=== PATIENT | male | born 1960 | race Caucasian/White ===

== ENCOUNTER 2021-02-24 23:42 | Inpatient (IN) | payer OTHER, SELFPAY ==
--- NOTE | ~2021-02-24 | XR_ITS ---
XR chest 1V portable DATE: 02/25/2021 00:05 INDICATION: Chest pain TECHNIQUE: Portable AP chest on 02/25/2021 at 0006 hours COMPARISON: 09/09/2017 two-view chest FINDINGS: Status post sternotomy/coronary bypass graft surgery. Heart size appears normal. No pulmonary infiltrate or consolidation, pleural effusion or pulmonary vascular congestion or pneumo thorax is evident. Degenerative changes of the thoracic spine. IMPRESSION: Status post sternotomy/CABG No active cardiopulmonary disease Reviewed, dictated and finalized at location A.
[2021-02-24 23:48] VITALS: BP 165/119; PULSE 135; RESP 15; O2SAT 100
--- NOTE | 2021-02-24 23:48 | ECG_ITS ---
Measurements Intervals [place] Rate: 146 P: MN: 0 QRS: -49 QRSD: 134 T: 130 QT: 296 QTc: 462 Interpretive Statements ATRIAL FIBRILLATION WITH RAPID VENTRICULAR RESPONSE VENTRICULAR COUPLET AND FREQUENT VENTRICULAR PREMATURE COMPLEXES LEFT BUNDLE BRANCH BLOCK INFERIOR INFARCT OR DUE TO LEFT BUNDLE BRANCH BLOCK ABNORMAL ECG Electronically Signed On 02-25-2021 8:22:06 CDT by Cooper Patterson D.O.
[2021-02-25] VITALS (69 sets, daily range): BP systolic 116–199; BP diastolic 75–147; PULSE 50–169; RESP 12–32; TEMP 36.3–37; O2SAT 96–100; BMI 27.5
--- NOTE | 2021-02-25 | ECHO_ITS ---
Patient Info Name: Bk Jennings Age: 60 years : 1960 Gender: Male Ht: 71 in Wt: 197 lbs BSA: 2.13 m2 HR: 68 bpm BP: 136 / 102 mmHg Technical Quality: Good Exam Date: 02/25/2021 3:31 PM Exam Location: [facility] Pulmonary Exam Room: [facility] Patient Status: Inpatient Admit Date: 02/25/2021 Staff Ordering Physician: Rima Sanchez PA-C Dental Technician Metal: Criss Ellis RDCS Attending Provider: Rima Sanchez PA-C Referring Physician: Latoya BELL Exam Type: CA echo doppler color flow Study Info Indications - ICM AFIB RVR CAD S/P CABG Complete two-dimensional, color flow and Doppler transthoracic echocardiogram is performed. Summary 1. Complete two-dimensional, color flow and Doppler transthoracic echocardiogram is performed. 2. Left ventricular chamber dimension is mildly enlarged. 3. Left ventricular systolic function is moderately reduced, estimated at 35-40%. 4. Left atrial chamber dimension is mildly enlarged. 5. The mitral valve has thickened leaflets. 6. There is mild mitral valve regurgitation. 7. There is no aortic valve stenosis. 8. There is no tricuspid valve regurgitation. 9. Unable to estimate pulmonary arterial systolic pressure due to poor TR jet. 10. There is no pericardial effusion. Left Ventricle Left ventricular chamber dimension is mildly enlarged. Left ventricular systolic function is moderately reduced, estimated at 35-40%. There is mildly increased left ventricular wall thickness. The left ventricular diastolic function is grade II diastolic dysfunction. Right Ventricle Right ventricular chamber dimension is normal. Right ventricular systolic function is normal. Left Atria Left atrial chamber dimension is mildly enlarged. Right Atria Right atrial chamber dimension is normal. Aortic Valve The aortic valve is trileaflet. There is no aortic valve sclerosis. There is no aortic valve stenosis. There is no aortic valve regurgitation. Pulmonic Valve The pulmonic valve is normal. There is no pulmonic valve stenosis. There is no pulmonic regurgitation. Mitral Valve The mitral valve has thickened leaflets. There is mild mitral valve regurgitation. Tricuspid Valve The tricuspid valve leaflets are normal. There is no significant tricuspid valve stenosis. There is no tricuspid valve regurgitation. Unable to estimate pulmonary arterial systolic pressure due to poor TR jet. Pericardium/Pleural The pericardium appears normal. There is no pericardial effusion. Inferior Vena Cava Normal inferior vena cava with >50% collapse upon inspiration. Aorta The aortic root size at the sinus of Valsalva is normal. The prox ascending aorta size is normal. Left Ventricular Outflow Tract Name Value Normal LVOT 2D LVOT Diameter 2.1 cm LVOT Doppler LVOT Peak Gradient 5 mmHg LVOT Mean Gradient 3 mmHg LVOT VTI 21 cm LVOT VTI/AV VTI Ratio 0.7 LVOT Stroke Volume 71 ml LVOT CO
--- NOTE | 2021-02-25 00:15 | ED.GENADULT ---
HPI - General Adult General Chief complaint: Chest Pain Stated complaint: chest pain, jaw pain, etoh, dehydration Time Seen by Provider: 02/24/21 23:45 History of Present Illness HPI narrative: Patient is a 60-year-old gentleman who presents the emergency department with chief complaint of jaw tightness and palpitations. The patient reports he has history of cardiac disease has had a bypass and is also had some stents placed in his heart. The patient reports he was at a local drinking establishment today and was drinking whiskey but states that he is not really drunk and started having symptoms while he was sitting at the bar. EMS was called patient was found to be tachycardic and patient was given a bolus of fluids in route to the emergency department. Patient reports is not really having active chest pain with this only tightness in his jaw. Related Data Home Medications Medication Instructions Recorded Confirmed aspirin 325 mg tablet 325 mg PO DAILY 06/12/20 carvedilol 6.25 mg tablet 6.25 mg PO Q12H 06/12/20 Allergies Allergy/AdvReac Type Severity Reaction Status Date / Time amoxicillin Allergy Intermediate UNKNOWN Verified 02/25/21 00:33 ciprofloxacin [Cipro] Allergy Intermediate UNKNOWN Verified 02/25/21 00:33 codeine Allergy Intermediate UNKOWN Verified 02/25/21 00:33 Penicillins Allergy Intermediate UNKNOWN Verified 02/25/21 00:33 Amedpnq-Lru-Hnc Reductase Allergy Mild ACHES Verified 02/25/21 00:33 Inhibitor Steroids Allergy Intermediate UNKNOWN Uncoded 02/25/21 00:33 Review of Systems Review of Systems: Narrative: A 10 system review of systems was completed on the patient and is negative except for what is stated in the HPI. Nursing and ancillary documentation was reviewed. [facility] Past Medical History Medical History CAD (coronary artery disease) Chronic back pain Disabled KATHY (generalized anxiety disorder) Herpesviral infection of penis HTN (hypertension) Hyperlipidemia Nicotine dependence, cigarettes, uncomplicated NSTEMI (non-ST elevated myocardial infarction) 10/04/2016 Teeth problem Due to insurance he can't get surgery Surgical History Surgical History H/O right heart catheterization 2017 Hx of CABG 2016 Family History Family History Father Heart disease Social History Social History Smoking status: Current every day smoker Exam Narrative: Exam Narrative: GENERAL: Well-appearing, well-nourished, and in no acute distress. HEAD: Normocephalic, atraumatic. EYES: PERRLA and EOMI. ENT: Nares clear, no rhinorrhea or epistaxis. Mucous membranes moist. NECK: Supple. CHEST: Clear to auscultation. No respiratory distress. HEART: Tachycardic rate and irregular rhythm. No murmur heard. Normal peripheral pulses. ABDOMEN: Soft, nontender, nondistended, normal active bowel sounds. EXTREMITIES: Normal range of motion. No edema. SKIN: Warm, dry, no rash. NEURO: No focal deficits. Alert and oriented x3. PSYCH: Normal mood and affect. Course Vital Signs Vital signs: Vital Signs Pulse Rate 135 H 02/24/21 23:48 Respiratory Rate 15 02/24/21 23:48 Blood Pressure 165/119 H 02/24/21 23:48 Pulse Oximetry 100 02/24/21 23:48 Pulse Rate 143 H 02/25/21 04:20 Respiratory Rate 18 02/25/21 04:16 Blood Pressure 127/94 H 02/25/21 04:20 Pulse Oximetry 97 02/25/21 03:35 Medical Decision Making Vital Signs Vital Signs: Vital Signs Pulse Rate 135 H 02/24/21 23:48 Respiratory Rate 15 02/24/21 23:48 Blood Pressure 165/119 H 02/24/21 23:48 Pulse Oximetry 100 02/24/21 23:48 Pulse Rate 143 H 02/25/21 04:20 Respiratory Rate 18 02/25/21 04:16 Blood Pressure 127/94 H 02/25/21 04:20 Pulse Oximetry 97
[2021-02-25] MEDS: dilTIAZem HCl INJ 25 MG/5 ML VIAL 20 MG IV PUSH ×2 (00:22→03:11)
[2021-02-25] MEDS: SODIUM CHLORIDE 0.9% IV 1,000 ML 999 ML IV CONT (00:30)
[2021-02-25 01:04] LABS: Alanine Aminotransferase 26 U/L (4-50); Alkaline Phosphatase 77 U/L (38-126); Anion Gap 11 mmol/L (8-16); Aspartate Amino Transferase 25 U/L (17-59); Bilirubin,Total 0.7 mg/dL (0.2-1.3); Blood Urea Nitrogen 8 mg/dL (9-20); Calcium 8.4 mg/dL (8.4-10.2); Carbon Dioxide 20 mmol/L (22-30); Chloride 107 mmol/L (98-107); Estimated CRCL calculation 106 ml/min; Estimated Glomerular Filt Rate > 60; Glucose 93 mg/dL (75-110); Lipase 136 U/L (23-300); Potassium 3.3 mmol/L (3.4-5.0); Sodium 138 mmol/L (137-145)
[2021-02-25 01:10] LABS: Basophils Absolute Auto 0.1 K/mm3 (0.0-0.1); Basophils Percent Auto 0.7 % (0.2-1.2); Eosinophils Absolute Auto 0.1 K/mm3 (0-0.3); Eosinophils Percent Auto 1.8 % (0-4.4); Hematocrit 41.2 % (42.0-52.0); Hemoglobin 14.3 g/dL (14.0-18.0); Immature Granulocyte Absolute 0.02 K/mm3 (0.00-0.031); Immature Granulocyte Percent A 0.3 % (0-0.5); Lymphocytes Absolute Auto 1.82 K/mm3 (0.9-3.2); Mean Corpuscular HGB Conc 34.7 g/dl (32-36); Mean Corpuscular Hemoglobin 31.4 pg (26-34); Mean Corpuscular Volume 90.4 fl (80-100); Mean Platelet Volume 11.9 fl (7.4-10.4); Monocytes Absolute Auto 0.7 K/mm3 (0.1-0.6); Monocytes Percent Auto 9.7 % (2.6-8.5); Neutrophils Absolute Auto 4.1 K/mm3 (1.3-6.7); Neutrophils Percent Auto 60.5 % (45.5-73.1); Platelet Count Result 171 k/mm3 (150-375); Red Blood Count 4.56 M/mm3 (4.6-6.20); Red Cell Distribution Width 12.8 % (11.5-14.5); White Blood Count 6.7 K/mm3 (4.5-10.0)
[2021-02-25 01:18] LABS: NT Pro B Type Natriuretic Pept 252 pg/mL (5-100); Troponin I 0.036 ng/mL (0.000-0.034)
[2021-02-25 01:24] LABS: INR 1.2; Prothrombin Time 14.6 Seconds (11.1-14.7)
[2021-02-25 01:25] LABS: Partial Thromboplastin Time 30.1 SECONDS (22.3-36.8)
[2021-02-25] MEDS: SODIUM CHLORIDE 0.9% IV 1,000 ML 100 ML (01:47)
[2021-02-25 04:41] LABS: Magnesium 2.2 mg/dL (1.6-2.3)
[2021-02-25 04:48] LABS: Troponin I 0.393 ng/mL (0.000-0.034)
[2021-02-25] MEDS: POTASSIUM CHLORIDE 20 MEQ PACKET (FOR LIQUID) 40 MEQ PO (05:07)
--- NOTE | 2021-02-25 06:18 | ADMGEN ---
This patient, Bk Jennings, was admitted to IMU Room 206-01. Patient/family oriented to hospital policies and general routines including ID bracelet, bed and alarms, visiting hours, pain management, procedures, bathroom and other care routines, personal items, smoking policy, room service/diet, and visiting hours. Information on how to activate the Rapid Response Team has been discussed. Patient/Family are encouraged to report perceived risks to care and to ask questions if they do not understand what they are told or what they should do. report from Noelle
--- NOTE | 2021-02-25 06:33 | PC.NURSE ---
Pt has $546 in triana in his wallet. Sandy Hernández counted it with me and the pt. He is insistent it stay w him and not be locked up
[2021-02-25 06:40] LABS: Magnesium 2.1 mg/dL (1.6-2.3)
[2021-02-25 06:51] LABS: Troponin I 0.754 ng/mL (0.000-0.034)
[2021-02-25] MEDS: SODIUM CHLORIDE 0.9% IV 1,000 ML 125 ML IV CONT (08:44)
--- NOTE | 2021-02-25 09:05 | PM.IMHP ---
H&P: HPI History of Present Illness Date/Time: 02/25/21 09:05 Chief Complaint: jaw pain with palpitations Narrative: Pt is a 60-year-old male here for palpitations and jaw pain. Patient states that he went drinking Tuesday night and while he was drinking he started having jaw pain and palpitations. He said he drank a bottle of Captain, 18 beers, and 2 margaritas and then started feeling bad. He had no chest pain or shortness of breath with this but did not feel great. He has had these palpitations in the past and is usually with exertion. Once he sits down, the jaw pain in the palpitations stop. He also notices the palpitations when he drinks alcohol but after a couple days the palpitations go way. He can usually climb 2-3 flights of stairs without any issue. He has had a 5 vessel bypass in 2017 and has not seen the junior systems administrator since he left the hospital from that stay. He has not been taking his medications carvedilol or aspirin in the last few days as he often forgets. He does not like how the other medications that he has been prescribed in the past make him feel and he is very weary about medications. He mentions that he has had stomach issues and about 5 days ago he had black stools. He has a history of peptic ulcer disease when he was younger when he would drink a lot but has not had any recent GI bleed or GI evaluation. He says that he has to drink magnesium citrate at least every other day so he can have bowel movements. He has been doing this for 5 years. He has no history of alcohol withdrawal issues including hallucinations, tremors or seizures. He says when he quits nothing happens. No problems with falls. He said his first KS was at 44. Review of Systems Review of Systems: All systems reviewed & are unremarkable except as noted in HPI and below [facility] Past Medical History Medical History (Updated 02/25/21 @ 11:53 by Rima Sanchez PA-C) CAD (coronary artery disease) Chronic back pain Disabled KATHY (generalized anxiety disorder) Herpesviral infection of penis HTN (hypertension) Hyperlipidemia Nicotine dependence, cigarettes, uncomplicated NSTEMI (non-ST elevated myocardial infarction) 10/04/2016 Peptic ulcer disease Teeth problem Due to insurance he can't get surgery Surgical History Surgical History H/O right heart catheterization 2017 Hx of CABG 2017 Family History Family History (Updated 02/25/21 @ 11:53 by Rima Sanchez PA-C) Father Heart disease first heart attack at 50 Mother Heart disease Social History Social History Smoking packs per day: 1.5 Smoking cigarettes per day: 30.0 Years smoked: 22 Smoking pack-years: 33.00 Smoking status: Current every day smoker Tobacco type: cigarettes Alcohol intake: current Substance use: never Other substance usage details: 5th of capt and 3 6packs every few days Gender identity (if verbalized by the patient): Male Spiritual care concerns: No Meds Home Medications and Allergies Home Medications Medication Instructions Recorded Confirmed Type aspirin 325 mg tablet 325 mg PO DAILY 06/12/20 02/25/21 History carvedilol 6.25 mg tablet 6.25 mg PO Q12H 06/12/20 02/25/21 History Allergies Allergy/AdvReac Type Severity Reaction Status Date / Time amoxicillin Allergy Intermediate UNKNOWN Verified 02/25/21 00:33 ciprofloxacin [Cipro] Allergy Intermediate UNKNOWN Verified 02/25/21 00:33 codeine Allergy Intermediate UNKOWN Verified 02/25/21 00:33 Penicillins Allergy Intermediate UNKNOWN Verified 02/25/21 00:33 Hwtrwis-Tgd-Vfu Reductase Allergy Mild ACHES Verified 02/25/21 00:33 Inhibitor Steroids Allergy Intermediate UNKNOWN Uncoded 02/25/21 00:33 Vital Signs Vital Signs - 24 hr 02/24/21 23:48 02/25/21 00:22 02/25/21 00:29 Temperature Pulse Rate 135 H 169 H 118 H Respir
--- NOTE | 2021-02-25 09:27 | PM.CNCAR ---
Assessment and Plan Assessment and plan (1) Atrial fibrillation with rapid ventricular response: Code(s): I48.91 - Unspecified atrial fibrillation Status: Acute Assessment and Plan: 60 y/o male with h/o [place], CAD s/p CABG in 2017,ischemic cardiomyopathy, HTN, HLD, active tobacco and alcohol use who presented with A Fib/RVR and NSTMI Patient has A fib with RVR in the setting of heavy alcohol use and hypokalemia Will resume home dose of Coreg Will start Digoxin IV load with 0.5 mcgX1 now followed by 0.25 X2 with 6 hours interval Check 2D echo Wean off Cardizem ying if EF is depressed Replace K He has severe non compliance issues and ongoing alcohol use with risk of fall. Would not be good candidate for senior care AC unless he change his drinking habits I A (2) NSTEMI (non-ST elevated myocardial infarction): Code(s): I21.4 - Non-ST elevation (NSTEMI) myocardial infarction Status: Acute Assessment and Plan: His troponin is mildly elevated. No chest pain. EKG with LBBB, unclear if new or if he had it before. Probably due to type II OH from increased demand. Will follow troponin to peak and consider IV heparin if troponin continues to risk Check 2D echo Continue ASA Statin listed as allergy. Will clarify with patient if true allergy Vs side effects (3) CAD (coronary artery disease): Code(s): I25.10 - Atherosclerotic heart disease of [place] coronary artery without angina pectoris Status: Acute Assessment and Plan: s/p CABGX5 at [place]. Unknown anatomy (4) Alcohol abuse: Code(s): F10.10 - Alcohol abuse, uncomplicated Status: Acute (5) Nicotine dependence, cigarettes, uncomplicated: Code(s): F17.210 - Nicotine dependence, cigarettes, uncomplicated Status: Acute (6) HTN (hypertension): Code(s): I10 - Essential (primary) hypertension Status: Acute History of Present Illness History of Present Illness Consult date/time: 02/25/21 09:27 60 y/o male with h/o OH, CAD s/p CABG in 2017,ischemci cardiomyopathy (EF 25% in 2017, recovered post CABG to 45%), HTN, HLD, active tobacco and alcohol use who presented with palpitations He started drinking around 1:00 pm yesterday, had 1.5 bottle of whisky and 12 beers. He reports palpitations every time he drinks, usually resolve spontaneously however yesterday they lasted longer hence he decided to come to ER. He was noted to be in A fib with RVR with HR 140s. Started on Cardizem drip. Heart rate remains elevated. Troponin was noted to be elevated 0.03--0.3--0.7. He denies chest pain or dyspnea. He admits to jaw pain only when the heart rate goes too fast. Denied dyspnea. EKG shows Atrial fibrillation, LBBB He smokes 1.5 pack a day. Father and grandfather had MIs Reason For Visit: Atrial Fibrillation w/Rapid Ventricular Response Review of Systems Review of Systems: All systems reviewed & are unremarkable except as noted in HPI and below Constitutional: Constitutional: Denies fatigue and Denies headache(s) Eyes: Eyes: Denies blurry vision ENT: Reports Normal hearing present and Denies headache(s) Cardiovascular: Cardiovascular: Denies chest pain, Denies diaphoresis, Denies pedal edema, Denies leg edema, Denies lightheadedness, Denies palpitations and Denies dyspnea Respiratory: Respiratory: Denies cough and Denies dyspnea Gastrointestinal: Gastrointestinal: Denies abdominal pain Musculoskeletal: Musculoskeletal: Denies back pain Neurologic: Reports Normal hearing present and Denies headache(s) Psychiatric: Psychiatric: Denies anxiety Endocrine: Endocrine: Denies fatigue and Denies palpitations [facility] Past Medical History Medical History CAD (coronary artery disease) Chronic back pain Disabled KATHY (generalized anxiety disorder) Herpesviral infection of penis HTN (hypertension) Hyperlipidemia Nicotine depe
[2021-02-25] MEDS: FOLIC ACID 1 MG TABLET PO (10:54)
[2021-02-25] MEDS: ASPIRIN 81 MG CHEWABLE TABLET PO (10:54)
[2021-02-25] MEDS: PANTOPRAZOLE SODIUM IV 40 MG VIAL IV PUSH ×2 (10:54→21:17)
[2021-02-25] MEDS: THIAMINE HCL 100 MG TABLET PO (10:54)
--- NOTE | 2021-02-25 11:09 | ECG_ITS ---
Measurements Intervals [place] Rate: 67 P: 35 MN: 209 QRS: -54 QRSD: 145 T: 120 QT: 397 QTc: 422 Interpretive Statements SINUS RHYTHM WITH FIRST DEGREE AV BLOCK POSSIBLE LEFT ATRIAL ENLARGEMENT LEFT AXIS DEVIATION LEFT BUNDLE BRANCH BLOCK INFERIOR INFARCT OR DUE TO LBBB BASELINE ARTIFACT- I, II, III ABNORMAL ECG Electronically Signed On 02-25-2021 11:57:39 CDT by Cooper Patterson D.O.
[2021-02-25] MEDS: carvediloL 6.25 MG TABLET PO ×2 (11:28→21:17)
[2021-02-25 12:18] LABS: Basophils Percent Auto 0.3 % (0.2-1.2); Eosinophils Absolute Auto 0.1 K/mm3 (0-0.3); Eosinophils Percent Auto 0.8 % (0-4.4); Hematocrit 46.4 % (42.0-52.0); Hemoglobin 15.7 g/dL (14.0-18.0); Immature Granulocyte Absolute 0.06 K/mm3 (0.00-0.031); Immature Granulocyte Percent A 0.5 % (0-0.5); Lymphocytes Absolute Auto 1.44 K/mm3 (0.9-3.2); Mean Corpuscular HGB Conc 33.8 g/dl (32-36); Mean Corpuscular Hemoglobin 31.3 pg (26-34); Mean Corpuscular Volume 92.6 fl (80-100); Mean Platelet Volume 11.2 fl (7.4-10.4); Monocytes Absolute Auto 1.1 K/mm3 (0.1-0.6); Monocytes Percent Auto 9.4 % (2.6-8.5); Neutrophils Absolute Auto 9.2 K/mm3 (1.3-6.7); Platelet Count Result 170 k/mm3 (150-375); Red Blood Count 5.01 M/mm3 (4.6-6.20); Red Cell Distribution Width 13.3 % (11.5-14.5)
--- NOTE | 2021-02-25 12:20 | PC.NURSE ---
To be noted - all charting on this patient on 02/25/21 from [id number] was noted to be as Enid Stone. This was an error. All charting during this time was completed by Nithya Meyers RN.
[2021-02-25] MEDS: HEPARIN SOD/D5W 100 UNITS/ML 25,000 UNITS/250 ML BAG 10 UNITS IV CONT (12:22)
[2021-02-25 12:29] LABS: INR 1.1; Prothrombin Time 13.9 Seconds (11.1-14.7)
[2021-02-25 12:30] LABS: Partial Thromboplastin Time 30.5 SECONDS (22.3-36.8)
[2021-02-25 19:03] LABS: Hematocrit 45.7 % (42.0-52.0); Hemoglobin 15.3 g/dL (14.0-18.0)
[2021-02-25 19:16] LABS: Partial Thromboplastin Time 68.6 SECONDS (22.3-36.8)
[2021-02-25] MEDS: HEPARIN SODIUM 5,000 UNITS/ML VIAL 3500 UNITS IV PUSH (19:47)
[2021-02-26] VITALS (9 sets, daily range): BP systolic 162–175; BP diastolic 98–106; PULSE 58–83; RESP 18–22; TEMP 36.4–36.6; O2SAT 98–100
[2021-02-26 01:03] LABS: Hematocrit 43.1 % (42.0-52.0); Hemoglobin 14.8 g/dL (14.0-18.0)
[2021-02-26 01:40] LABS: Partial Thromboplastin Time > 200.0 SECONDS (22.3-36.8)
--- NOTE | 2021-02-26 04:05 | PC.NURSE ---
c/o chronic back pain. I'm gong to tell them tomorrow that I need to go home. The bed is throwing my back out. I feel good now. Discussed being NPO for a possible cardiac catheterization I'm not doing that. I told them that yesterday.
--- NOTE | 2021-02-26 07:01 | PC.NURSE ---
called to room per patient I really need the [place] Milk of Magnesium. I can't go to the bathroom. I was just in there straining and about blew my head off. I just can't go. My stomach hurts from straining. I'm going to ask them to send me home early this morning. Emotional support provided.
[2021-02-26] MEDS: carvediloL 6.25 MG TABLET PO (08:30)
[2021-02-26] MEDS: THIAMINE HCL 100 MG TABLET PO (08:30)
[2021-02-26] MEDS: ASPIRIN 81 MG CHEWABLE TABLET PO (08:30)
[2021-02-26] MEDS: FOLIC ACID 1 MG TABLET PO (08:30)
[2021-02-26] MEDS: PANTOPRAZOLE SODIUM IV 40 MG VIAL IV PUSH (08:31)
[2021-02-26 09:14] LABS: Alanine Aminotransferase 27 U/L (4-50); Albumin Level 4.2 g/dL (3.5-5.1); Alkaline Phosphatase 83 U/L (38-126); Anion Gap 10 mmol/L (8-16); Aspartate Amino Transferase 36 U/L (17-59); Bilirubin,Total 1.2 mg/dL (0.2-1.3); Blood Urea Nitrogen 10 mg/dL (9-20); Calcium 9.3 mg/dL (8.4-10.2); Carbon Dioxide 22 mmol/L (22-30); Chloride 105 mmol/L (98-107); Cholesterol 165 mg/dL (0-200); Estimated CRCL calculation 84 ml/min; Estimated Glomerular Filt Rate > 60; Glucose 107 mg/dL (75-110); HDL Direct 29 mg/dL; Sodium 137 mmol/L (137-145); Triglycerides 127 mg/dL (<150)
[2021-02-26 09:24] LABS: LDL Cholesterol Direct 101 mg/dL
--- NOTE | 2021-02-26 10:30 | PM.PNCARD ---
Progress Note: A&P Assessment and Plan (1) NSTEMI (non-ST elevated myocardial infarction): Code(s): I21.4 - Non-ST elevation (NSTEMI) myocardial infarction Status: Acute Assessment and Plan: 60 y/o male with h/o [place], CAD s/p CABG in 2017,ischemic cardiomyopathy, HTN, HLD, active tobacco and alcohol use who presented with A Fib/RVR and NSTMI His troponin peaked at 2.5 2D echo showed EF 35-40% He is on IV heparin and would benefit from [facility] to assess [place] coronaries and grafts. He declines LHC and wants to leave the hospital I explained risk of heart attack, arrhythmias and even possible but he insists on leaving He is signing him self against medical advise I offered nicotine patch but he declines that. 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 (2) Atrial fibrillation with rapid ventricular response: Code(s): I48.91 - Unspecified atrial fibrillation Status: Acute Assessment and Plan: Converted back to normal sinus rhythm Continue Coreg He has severe non compliance issues and ongoing alcohol use with risk of fall. Would not be good candidate for group home AC A (3) CAD (coronary artery disease): Code(s): I25.10 - Atherosclerotic heart disease of [place] coronary artery without angina pectoris Status: Acute Assessment and Plan: s/p CABGX5 at [place]. Unknown anatomy (4) Alcohol abuse: Code(s): F10.10 - Alcohol abuse, uncomplicated Status: Acute (5) Nicotine dependence, cigarettes, uncomplicated: Code(s): F17.210 - Nicotine dependence, cigarettes, uncomplicated Status: Acute Subjective Date/time seen: 02/26/21 10:30 He feels back to normal. He would like to go home. He does not believe that he necessarily had a heart attack. Review of Systems Review of Systems: All systems reviewed & are unremarkable except as noted in HPI and below Exam Const: General: no acute distress Eyes: Sclera: sclerae normal Neck: Neck: no JVD Carotids: no bruits Resp: Effort & Inspection: normal respiratory effort Auscultation: clear to auscultation bilaterally Cardio: Rate: tachycardic Rhythm: abnormal rhythm Heart sounds: S1 normal heart sound present, S2 normal heart sound present, no gallops, no murmurs and no rubs Skin: General skin exam: normal color Neuro: Cranial nerves: Yes Normal hearing present Speech: normal speech Extrem: General: normal to inspection and no edema Psych: Affect: normal affect Objective Data Vital Signs Vital Signs: Vital Signs - 24 hr 02/25/21 11:28 02/25/21 12:00 02/25/21 14:00 Temperature 37.0 C Pulse Rate 76 64 62 Pulse Rate [Bilateral Pedal (Dorsalis Pedis) Palpation] 61 Respiratory Rate 20 Blood Pressure 131/84 Pulse Oximetry 99 02/25/21 16:00 02/25/21 18:00 02/25/21 19:31 Temperature 36.3 C L 36.9 C Pulse Rate 63 60 50 L Pulse Rate [Bilateral Pedal (Dorsalis Pedis) Palpation] 62 Respiratory Rate 20 16 Blood Pressure 131/84 133/77 Pulse Oximetry 99 97 02/25/21 20:00 02/25/21 21:17 02/25/21 22:00 Temperature Pulse Rate 59 L 71 65 Pulse Rate [Bilateral Pedal (Dorsalis Pedis) Palpation] 59 L Respiratory Rate Blood Pressure Pulse Oximetry 02/25/21 23:49 02/26/21 00:00 02/26/21 02:00 Temperature 36.7 C Pulse Rate 56 L 60 58 L Pulse Rate [Bilateral Pedal (Dorsalis Pedis) Palpation] 60 Respiratory Rate 18 Blood Pressure 134/81 Pulse Oximetry 100 100 02/26/21 04:00 02/26/21 06:00 02/26/21 08:05 Temperature 36.6 C Pulse Rate 77 58 L Pulse Rate [Bilateral Pedal (Dorsalis Pedis) Palpation] 63 Respiratory Rate 18 Blood Pressure 162/98 H Pulse Oximetry 99 98 02/26/21
--- NOTE | 2021-02-26 10:37 | PC.NURSE ---
Patient notified of risks of leaving AMA. JJ Hale and Dr Mejia notified. 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 Patient signed AMA form.
--- NOTE | 2021-02-26 13:47 | PM.EVENT ---
Event Note Event Note Event Note: patient left against medical advise prior to me seeing him 02/26/21
== END 2021-02-26 10:35 | disposition left against medical advice (07) | DRG 190 ==
LOC: ANHED 02-25 04:32 → ANHIMU 02-25 04:51
PROVIDERS: Internal Medicine; Physician Assistant; Admitting Provider Internal Medicine; Emergency Provider Emergency Medicine; PCP Nurse Practitioner Family; Visit Provider Internal Medicine
DX: I21.4 Non-ST elevation (NSTEMI) myocardial infarction (principal); I48.91 Unspecified atrial fibrillation; I25.10 Atherosclerotic heart disease of native coronary artery without angina pectoris; I25.5 Ischemic cardiomyopathy; I10 Essential (primary) hypertension; F10.10 Alcohol abuse, uncomplicated; F17.210 Nicotine dependence, cigarettes, uncomplicated; E78.5 Hyperlipidemia, unspecified; F41.1 Generalized anxiety disorder; K27.9 Peptic ulcer, site unspecified, unspecified as acute or chronic, without hemorrhage or perforation; I25.2 Old myocardial infarction; Z79.82 Long term (current) use of aspirin; Z79.899 Other long term (current) drug therapy; Z95.1 Presence of aortocoronary bypass graft
CPT/HCPCS: 36415; 71045; 80048; 80053; 80061; 80076; 83690; 83735; 83880; 84484; 85014; 85018; 85025; 85610; 85730; 86850; 86900; 86901; 93005; 93306; 96361; 96365; 96366; 96375; 99285; A9270; C9113; J1644; J7030; J7060